=== PATIENT | female | born 1955 | race Caucasian/White ===

== ENCOUNTER 2020-07-31 12:10 | Inpatient (IN) | payer OTHER ==
[~2020-07-31] VITALS: Ht 154.9 cm; Wt 68.0 kg
[2020-07-31] MEDS ORDERED: ALENDRONATE SOD70 MG (13:08)
[2020-07-31] MEDS ORDERED: LOSARTAN POTASS25 MG PO (13:08)
[2020-07-31] MEDS ORDERED: ONDANSETRON HCL INJ 2MG/ML 2ML 2 MG/ML VIAL IV STA (13:33)
[2020-07-31] MEDS ORDERED: FAMOTIDINE 20 MG/2 ML VIAL IV STA (13:33)
[2020-07-31] MEDS ORDERED: KETOROLAC TROMETHAMINE 30 MG/ML VIAL ONE (13:43)
[2020-07-31] MEDS ORDERED: ONDANSETRON HCL INJ 2MG/ML 2ML 2 MG/ML VIAL ONE (13:43)
[2020-07-31] MEDS ORDERED: SODIUM CHLORIDE 0.9% 1000ML 1,000 ML ONE ×2 (13:44→17:37)
[2020-07-31] MEDS ORDERED: FAMOTIDINE 20 MG/2 ML VIAL IV ONE (13:44)
[2020-07-31] MEDS ORDERED: SODIUM CHLORIDE 0.9% 1000ML 1,000 ML IV SCH (13:45)
[2020-07-31] MEDS ORDERED: KETOROLAC TROMETHAMINE 30 MG/ML VIAL IV NR (14:30)
[2020-07-31] MEDS ORDERED: SODIUM CHLORIDE 0.9% 50ML 50 ML ONE (15:21)
[2020-07-31] MEDS ORDERED: IOPAMIDOL 370 MG/ML 200 ML INFUS..BTL INJ ONE (15:22)
[2020-07-31] MEDS ORDERED: PIPERACILLIN/TAZOBACTAM SOD 2.25 GM VIAL ONE (15:45)
[2020-07-31] MEDS ORDERED: SODIUM CHLORIDE 0.9% 100 ML ONE (15:46)
[2020-07-31] MEDS ORDERED: PIPERACILLIN/TAZOBACTAM 4.5 GM in SODIUM CHLORIDE 0.9% 100 ML IV ONE (16:15)
[2020-07-31] MEDS ORDERED: PROMETHAZINE HCL (IM) 25 MG/ML VIAL IM PRN (16:15)
[2020-07-31] MEDS: SODIUM CHLORIDE 0.9% 1000ML 1,000 ML IV SCH (17:30)
[2020-07-31] MEDS ORDERED: HEPARIN SOD (PORCINE) 5,000 UNIT/ML VIAL SC ONE (19:30)
[2020-07-31 20:00] VITALS: BP 104/58
[2020-07-31 20:03] VITALS: BP 110/67
[2020-07-31] MEDS: PIPERACILLIN/TAZOBACTAM 3.375 GM in SODIUM CHLORIDE 0.9% 50ML 50 ML IV SCH (21:03)
[2020-07-31 23:44] VITALS: BP 91/60
[2020-08-01 04:17] VITALS: BP 100/57
[2020-08-01] MEDS: SODIUM CHLORIDE 0.9% 1000ML 1,000 ML IV SCH (04:39)
[2020-08-01] MEDS: HYDROMORPHONE 1MG/1ML INJ IV PRN ×3 (04:39→18:58)
[2020-08-01] MEDS: PIPERACILLIN/TAZOBACTAM 3.375 GM in SODIUM CHLORIDE 0.9% 50ML 50 ML IV SCH ×3 (05:10→21:26)
[2020-08-01 07:26] LABS: BASOPHILS % 0.4 % (0.0-1.0); EOSINOPHILS % 0.1 % (0.0-6.0); HEMATOCRIT 33.5 % (34.2-44.1); HEMOGLOBIN 11.2 g/dL (12.0-16.0); LYMPHOCYTES % 12.5 % (18.0-39.1); MEAN CORPUSCULAR HEMOGLOBIN 30.4 pg (28-32); MEAN CORPUSCULAR HGB CONC 33.4 g/dL (31-35); MEAN CORPUSCULAR VOLUME 90.8 fL (81-99); MONOCYTES # (AUTO) 0.7 (0.2-0.8); MONOCYTES % 8.6 % (4.4-11.3); NEUTROPHILS # (AUTO) 6.1 (2.1-6.9); NEUTROPHILS % 78.1 % (38.7-80.0); PLATELET COUNT 279 x10e3/uL (140-360); RED BLOOD COUNT 3.69 x10e6/uL (3.6-5.1); RED CELL DISTRIBUTION WIDTH 12.9 % (11.7-14.4)
[2020-08-01 07:34] LABS: ALBUMIN 2.9 g/dL (3.5-5.0); ALBUMIN/GLOBULIN RATIO 1.3 (0.8-2.0); ANION GAP 10.8 mmol/L (8-16); CALCIUM 7.4 mg/dL (8.4-10.2); CREATININE, SERUM 0.71 mg/dL (0.57-1.11); POTASSIUM 3.8 mmol/L (3.5-5.1)
[2020-08-01 07:47] VITALS: BP 99/55
[2020-08-01 07:59] LABS: INR 1.24; PROTHROMBIN TIME 16.3 seconds (11.9-14.5)
[2020-08-01 08:00] LABS: PARTIAL THROMBOPLASTIN TIME 30.9 seconds (23.8-35.5)
[2020-08-01 08:18] VITALS: BP 99/55
[2020-08-01] MEDS: LACTATED RINGER'S 1,000 ML INJ SCH ×2 (11:07→21:26)
[2020-08-01 11:09] VITALS: BP 108/58
[2020-08-01 14:52] VITALS: BP 108/67
[2020-08-01 20:00] VITALS: BP 106/63
[2020-08-02] VITALS (8 sets, daily range): BP systolic 109–124; BP diastolic 66–71
[2020-08-02] MEDS: HYDROMORPHONE 1MG/1ML INJ IV PRN ×5 (00:52→21:35)
[2020-08-02 05:14] LABS: BASOPHILS % 0.5 % (0.0-1.0); EOSINOPHILS % 0.4 % (0.0-6.0); HEMATOCRIT 32.1 % (34.2-44.1); HEMOGLOBIN 10.7 g/dL (12.0-16.0); LYMPHOCYTES # (AUTO) 1.3 (1.0-3.2); LYMPHOCYTES % 15.4 % (18.0-39.1); MEAN CORPUSCULAR HEMOGLOBIN 30.3 pg (28-32); MEAN CORPUSCULAR HGB CONC 33.3 g/dL (31-35); MEAN CORPUSCULAR VOLUME 90.9 fL (81-99); MONOCYTES # (AUTO) 0.7 (0.2-0.8); MONOCYTES % 8.4 % (4.4-11.3); NEUTROPHILS # (AUTO) 6.4 (2.1-6.9); NEUTROPHILS % 75.1 % (38.7-80.0); PLATELET COUNT 275 x10e3/uL (140-360); RED BLOOD COUNT 3.53 x10e6/uL (3.6-5.1); RED CELL DISTRIBUTION WIDTH 12.9 % (11.7-14.4)
[2020-08-02] MEDS: PIPERACILLIN/TAZOBACTAM 3.375 GM in SODIUM CHLORIDE 0.9% 50ML 50 ML IV SCH ×3 (05:19→21:40)
[2020-08-02] MEDS: LACTATED RINGER'S 1,000 ML INJ SCH ×3 (05:20→21:40)
[2020-08-02 05:36] LABS: ALBUMIN 2.7 g/dL (3.5-5.0); ANION GAP 8.6 mmol/L (8-16); BILIRUBIN,DIRECT 0.3 mg/dL (0.0-0.5); CALCIUM 7.7 mg/dL (8.4-10.2); CREATININE, SERUM 0.63 mg/dL (0.57-1.11); POTASSIUM 3.6 mmol/L (3.5-5.1)
[2020-08-02] MEDS: ONDANSETRON HCL INJ 2MG/ML 2ML 2 MG/ML VIAL IV PRN ×3 (10:05→21:30)
[2020-08-02] MEDS ORDERED: SODIUM CHLORIDE 0.9% 50ML 50 ML ONE (20:41)
[2020-08-03] VITALS (8 sets, daily range): BP systolic 106–132; BP diastolic 61–70
[2020-08-03] MEDS: ONDANSETRON HCL INJ 2MG/ML 2ML 2 MG/ML VIAL IV PRN (01:48)
[2020-08-03] MEDS: HYDROMORPHONE 1MG/1ML INJ IV PRN (01:48)
[2020-08-03] MEDS: PIPERACILLIN/TAZOBACTAM 3.375 GM in SODIUM CHLORIDE 0.9% 50ML 50 ML IV SCH ×3 (05:25→22:11)
[2020-08-03 06:24] LABS: ANION GAP 12.7 mmol/L (8-16); CALCIUM 7.5 mg/dL (8.4-10.2); CREATININE, SERUM 0.64 mg/dL (0.57-1.11); POTASSIUM 3.7 mmol/L (3.5-5.1)
[2020-08-03 06:45] LABS: THYROID STIMULATING HORMONE 1.7 uIU/mL (0.350-4.940)
[2020-08-03] MEDS: LACTATED RINGER'S 1,000 ML INJ SCH ×2 (07:28→22:11)
[2020-08-03] MEDS ORDERED: IOPAMIDOL 300MG/ML 50ML INFUS..BTL IV ONE (18:19)
[2020-08-03] MEDS ORDERED: INDOMETHACIN 50 MG SUPP.RECT RC ONE (18:19)
[2020-08-03] MEDS ORDERED: GLUCAGON FOR INJ 1 MG VIAL ONE (18:56)
[2020-08-03] MEDS: SODIUM CHLORIDE 0.9% 1000ML 1,000 ML IV SCH (20:14)
[2020-08-04] VITALS (7 sets, daily range): BP systolic 106–145; BP diastolic 60–75
[2020-08-04] MEDS: SODIUM CHLORIDE 0.9% 1000ML 1,000 ML IV SCH ×3 (05:28→20:27)
[2020-08-04] MEDS: PIPERACILLIN/TAZOBACTAM 3.375 GM in SODIUM CHLORIDE 0.9% 50ML 50 ML IV SCH ×3 (06:02→22:02)
[2020-08-04] MEDS: LACTATED RINGER'S 1,000 ML INJ SCH ×2 (08:45→18:45)
[2020-08-04] MEDS ORDERED: LIDOCAINE 1% W/EPINEPHRINE 20 ML VIAL ONE (11:24)
[2020-08-04] MEDS ORDERED: BUPIVACAINE HCL 0.25% 10ML MPF VIAL INJ ONE (11:24)
[2020-08-04] MEDS: ONDANSETRON HCL INJ 2MG/ML 2ML 2 MG/ML VIAL IV PRN (15:36)
[2020-08-04] MEDS: HYDROMORPHONE 1MG/1ML INJ IV PRN (15:36)
[2020-08-04] MEDS ORDERED: ACETAMINOPHEN/CODEINE 300MG - 30MG TAB PO PRN (22:00)
[2020-08-05 00:02] VITALS: BP 108/60
[2020-08-05] MEDS: SODIUM CHLORIDE 0.9% 1000ML 1,000 ML IV SCH (04:11)
[2020-08-05] MEDS: LACTATED RINGER'S 1,000 ML INJ SCH (04:11)
[2020-08-05 05:23] VITALS: BP 113/60
[2020-08-05] MEDS: PIPERACILLIN/TAZOBACTAM 3.375 GM in SODIUM CHLORIDE 0.9% 50ML 50 ML IV SCH (05:24)
[2020-08-05 07:31] VITALS: BP 123/63
[2020-08-05 09:37] VITALS: BP 123/63
[2020-08-05 10:59] VITALS: BP 123/63
[2020-08-05 11:08] VITALS: BP 114/68
== END 2020-08-05 14:03 | disposition home or self-care (01) | DRG 418 ==
LOC: FSED 12:12 → ERHOLD 16:19 → MED/SURG2 19:15 → MED/SURG 19:29
PROVIDERS: ADMIT Internal Medicine; ATTEND Internal Medicine
PROC: 0FC98ZZ Extirpation of Matter from Common Bile Duct, Via Natural or Artificial Opening Endoscopic (ICD-10-PCS; 2020-07-31)
PROC: BF111ZZ Fluoroscopy of Biliary and Pancreatic Ducts using Low Osmolar Contrast (ICD-10-PCS; 2020-07-31)
PROC: 0FT44ZZ Resection of Gallbladder, Percutaneous Endoscopic Approach (ICD-10-PCS; principal; 2020-08-04 12:00)
DX: K80.62 Calculus of gallbladder and bile duct with acute cholecystitis without obstruction (principal); E87.1 Hypo-osmolality and hyponatremia; E87.2 Acidosis; I10 Essential (primary) hypertension
CPT/HCPCS: 36415; 43260; 74177; 74181; 74328; 80048; 80053; 80076; 81003; 82553; 83690; 84443; 84484; 85025; 85610; 85730; 88304; 96360; 96374; 96375; 99284; J1170; J1610; J1644; J1885; J2405; J2543; J7030; J7050; J7121; Q9967